=== PATIENT | male | born 1940 | race Caucasian/White ===

== ENCOUNTER 2022-05-28 12:17 | Emergency (ER) | payer MEDICARE ==
[~2022-05-28] VITALS: Ht 177.8 cm; Wt 72.7 kg
[2022-05-28 12:47] VITALS: BP 118/74
[2022-05-28 15:39] LABS: COLOR,URINE YELLOW (Yellow); GLUCOSE, URINE NEGATIVE (Neg); KETONES,URINE 40 mg/dl (Neg); LEUKOCYTE ESTERASE ,URINE MODERATE (Neg); NITRITES, URINE POSITIVE (Neg); OCCULT BLOOD,URINE LARGE (Neg); PH,URINE 5.5 (4.8-8.0); PROTEIN,URINE 100 mg/dl (Neg); UROBILINOGEN,URINE 0.2 E.U/dL (0.2-1.0)
[2022-05-28 15:55] LABS: CLARITY,URINE CLOUDY (Clear); UA COLLECTION TYPE FOLEY CATH
[2022-05-28 15:56] LABS: RBC,URINE TNTC /HPF (0-2); WBC,URINE TNTC /HPF (0-4)
[2022-05-28 15:57] LABS: BACTERIA,URINE 4+ /HPF (Neg)
[2022-05-28 15:58] LABS: MUCUS STRANDS NONE SEEN /LPF (Neg); SQUAMOUS EPITHELIAL CELL,UR NONE SEEN /LPF (FEW); TRANSITIONAL EPI CELLS,URINE FEW /HPF
[2022-05-28] MEDS ORDERED: PHEN-786 PO (16:10)
[2022-05-28] MEDS ORDERED: CEPH-585 PO (16:10)
[2022-05-28] MEDS ORDERED: cephalexin 250mg capsule PO ONE (16:15)
== END 2022-05-28 16:29 | disposition home or self-care (01) ==
LOC: ER 12:19
DX: T83.511A Infection and inflammatory reaction due to indwelling urethral catheter, initial encounter (principal); N39.0 Urinary tract infection, site not specified; R10.2 Pelvic and perineal pain; Z87.440 Personal history of urinary (tract) infections; Z72.89 Other problems related to lifestyle; Y84.6 Urinary catheterization as the cause of abnormal reaction of the patient, or of later complication, without mention of misadventure at the time of the procedure
CPT/HCPCS: 81001; 87077; 87088; 87186; 99283; A4358